=== PATIENT | male | born 1985 | race Two or more races ===

== ENCOUNTER 2017-10-19 18:51 | Emergency (ER) | payer MEDICAID ==
[~2017-10-19] VITALS: Ht 175.3 cm; Wt 58.6 kg
[2017-10-19 18:57] VITALS: Ht 175.3 cm; Wt 58.6 kg
[2017-10-19 19:41] VITALS: BP 119/69
== END 2017-10-19 19:41 | disposition home or self-care (01) ==
LOC: ED 18:51
DX: M77.9 Enthesopathy, unspecified (principal)
CPT/HCPCS: Q0092